=== PATIENT | male | born 1975 | race African-American/Black ===

== ENCOUNTER → 2017-09-10 | Emergency (ER) | payer MEDICAID ==
[~2017-09-10] VITALS: Ht 188 cm; Wt 83.4 kg
[~2017-09-10] MED LIST: FLUT16SP2 BOTHNARES; IBUP-1984 PO; LORA10TA61 PO
[2017-09-10 08:51] VITALS: BP 114/64
== END | disposition home or self-care (01) ==
LOC: ER 08:48
DX: J30.9 Allergic rhinitis, unspecified (principal); R13.10 Dysphagia, unspecified; Z79.899 Other long term (current) drug therapy
CPT/HCPCS: 99283

== ENCOUNTER → 2018-12-15 | Emergency (ER) | payer MEDICAID, OTHER ==
[~2018-12-15] MED LIST changes: -IBUP-1984 PO
--- NOTE | 2018-12-15 00:31 | NUR ---
PATIENT WAS AGITATED IN TRIAGE AND WOULD NOT ANSWER APPROPRIATE QUESTIONS. WHILE DOING QC ON GLUCOMETER, PATIENT SAID HE COULDN'T WAIT AND LEFT TRIAGE.
== END | disposition left against medical advice (07) ==
LOC: ER 00:14
DX: E11.8 Type 2 diabetes mellitus with unspecified complications (principal); Z53.21 Procedure and treatment not carried out due to patient leaving prior to being seen by health care provider; Z79.899 Other long term (current) drug therapy